=== PATIENT | female | born 1955 | race Caucasian/White ===

== ENCOUNTER → 2016-12-07 | Outpatient (CLI) | payer OTHER | LOC: MC.RAD 14:00 | DX: N63 Unspecified lump in breast (principal); D24.1 Benign neoplasm of right breast; D24.2 Benign neoplasm of left breast ==

== ENCOUNTER → 2020-02-18 | Outpatient (CLI) | payer MEDICARE, BC ==
[2020-02-18 10:04] LABS: HEMATOCRIT 45.4 % (37.0-47.0); HEMOGLOBIN 15.1 g/dl (12.5-16.0); MEAN CELL VOLUME 95 fl (80.0-100.0); MEAN CORPUSCULAR HEMOGLOBIN 32 pg (27.0-31.0); MEAN CORPUSCULAR HGB CONC 33 g/dl (33.0-37.0); MEAN PLATELET VOLUME 9.7 fl (7.4-10.4); PLATELET COUNT 277 K/mm3 (130-400); RED BLOOD COUNT 4.76 M/mm3 (4.10-5.30); REDCELL DISTRIBUTION WIDTH-CV 12.1 % (11.5-14.5)
[2020-02-18 10:34] LABS: ERYTHROCYTE SEDIMENTATION RATE 13 mm/hr (0-30)
== END ==
LOC: COL.LAB 09:21
PROVIDERS: Orthopaedic Surgery
DX: Z47.1 Aftercare following joint replacement surgery (principal); Z96.651 Presence of right artificial knee joint

== ENCOUNTER 2021-02-26 13:31 | Inpatient (IN) | payer OTHER ==
[~2021-02-26] VITALS: Ht 160.1 cm; Wt 88.9 kg
[2021-02-26 15:53] LABS: BASO # 0.1 (0.0-0.2); BASO % 0.4 % (0.0-2.0); EOS # 0.2 (0.0-0.7); EOS % 1.5 % (0-4.0); GRAN # 12.7 (1.4-6.5); GRAN % 81.5 % (42.2-75.2); HEMATOCRIT 40.3 % (37.0-47.0); HEMOGLOBIN 13.2 g/dl (12.5-16.0); LYMPH # 1.6 (1.2-3.4); LYMPH % 10.1 % (20.0-51.0); MEAN CELL VOLUME 96 fl (80.0-100.0); MEAN CORPUSCULAR HEMOGLOBIN 31 pg (27.0-31.0); MEAN CORPUSCULAR HGB CONC 33 g/dl (33.0-37.0); MEAN PLATELET VOLUME 9.7 fl (7.4-10.4); MONO # 0.9 (0.1-0.6); PLATELET COUNT 283 K/mm3 (130-400); RED BLOOD COUNT 4.21 M/mm3 (4.10-5.30); REDCELL DISTRIBUTION WIDTH-CV 12.1 % (11.5-14.5)
[2021-02-26 16:01] LABS: PROTHROMBIN TIME 11.2 SECONDS (9.7-12.8)
[2021-02-26 16:04] LABS: ALBUMIN 4.2 gm/dL (3.5-5.0); BILIRUBIN,TOTAL 0.3 mg/dL (0.0-1.0); CALCIUM 8.9 mg/dL (8.4-10.2); CREATININE, serum 0.83 (0.52-1.25); POTASSIUM 4.3 mmol/L (3.4-5.0); TOTAL PROTEIN 7.5 gm/dL (6.4-8.2)
[2021-02-26 17:32] LABS: MUCOUS Present /lpf; PH 5 (5-8); SQUAMOUS EPITHELIAL 0-2 /hpf; URINE APPEARANCE Clear; URINE BACTERIA None Seen /hpf; URINE BILIRUBIN Negative (NEGATIVE); URINE BLOOD 1+ (NEGATIVE); URINE COLOR Yellow; URINE GLUCOSE Negative (NEGATIVE); URINE KETONE Negative (NEGATIVE); URINE LEUKOCYTE ESTERASE Negative (NEGATIVE); URINE NITRATE Negative (NEGATIVE); URINE PROTEIN(semi-quant) Negative (NEGATIVE); URINE WBC 0-2 /hpf
[2021-02-26 18:13] LABS: COLLECTION METHOD CLEAN CATCH
--- NOTE | 2021-02-26 18:30 | NUR ---
PATIENT ARRIVED TO ROOM 327 VIA CART FROM ER. PATIENT SETTELED INTO ROOM. CALL LIGHT WITHIN REACH. REPORT GIVEN TO ADELSO BHATTI.
[2021-02-26 18:37] VITALS: BP 134/74; PULSE 67; TEMP 98.5
[2021-02-26] MEDS ORDERED: NAPROSYN 2250 MG/TAB PO (19:50)
[2021-02-26] MEDS ORDERED: VOLTAREN 75 DR75 MG PO (19:51)
[2021-02-26] MEDS ORDERED: NORCO 325 MG-51 TAB PO (19:51)
[2021-02-26] MEDS ORDERED: PRAVACHOL80 MG PO (19:52)
[2021-02-26] MEDS ORDERED: SYNTHROID0.112 MG/T PO (19:52)
[2021-02-26] MEDS ORDERED: COZAAR 25MG25 MG/TAB PO (19:53)
--- NOTE | 2021-02-26 19:58 | NUR ---
PT MEDICATED WITH DILAUDID 0.5MG IVP AT THIS TIME FOR PAIN 8/10 TO RIGHT LEG AND RIBS. HAS SL TO LEFT WRIST, FLUSHES WELL. HAS RODRIGUEZ TO BSD WITH YELLOW URINE. SPOUSE BROUGHT FOOD FROM HOME. TEDS AND SCD TO LEFT LEG.
[2021-02-26 20:05] VITALS: BP 145/87; PULSE 70; TEMP 98.3
--- NOTE | 2021-02-26 22:19 | NUR ---
MEDICATED WITH IV DILAUDID 0.5MG FOR PAIN 6/10 TO RIGHT LEG.
--- NOTE | 2021-02-26 22:33 | NUR ---
SPOKE WITH SIXTO FRANCISCO REGARDING ORDERED LOVENOX FOR THIS PATIENT. OKAYED TO HOLD UNTIL AFTER SURGERY, POTENTIALLY TOMORROW.
[2021-02-27] VITALS (13 sets, daily range): BP systolic 94–137; BP diastolic 52–73; PULSE 57–78; TEMP 97.4–98.4
--- NOTE | 2021-02-27 00:05 | NUR ---
Melatonin 9mg po given for sleep.
--- NOTE | 2021-02-27 01:27 | NUR ---
Pt asking for something else for sleep, Yesika CASTRO contacted, new order for Tylenol. Pt medicated at this time with Dilaudid 0.5mg IVP for pain to rt leg 05/17.
--- NOTE | 2021-02-27 02:23 | NUR ---
DILAUDID 0.5MG IVP NOW FOR CONTINUED PAIN TO RT LEG.
[2021-02-27 02:36] LABS: COLLECTION METHOD CATHETER
[2021-02-27 02:46] LABS: MUCOUS Present /lpf; PH 5 (5-8); SQUAMOUS EPITHELIAL None Seen /hpf; URINE APPEARANCE Clear; URINE BACTERIA None Seen /hpf; URINE BILIRUBIN Negative (NEGATIVE); URINE BLOOD 2+ (NEGATIVE); URINE COLOR Yellow; URINE GLUCOSE Negative (NEGATIVE); URINE KETONE Negative (NEGATIVE); URINE LEUKOCYTE ESTERASE Trace (NEGATIVE); URINE NITRATE Negative (NEGATIVE); URINE PROTEIN(semi-quant) Negative (NEGATIVE); URINE RBC >50 /hpf
--- NOTE | 2021-02-27 04:30 | NUR ---
Pt denies need for pain meds at this time. Has been NPO since midnight.
[2021-02-27 06:32] LABS: BASO # 0.1 (0.0-0.2); BASO % 0.6 % (0.0-2.0); EOS # 0.4 (0.0-0.7); EOS % 4.9 % (0-4.0); GRAN # 4.8 (1.4-6.5); GRAN % 56.1 % (42.2-75.2); HEMOGLOBIN 11.8 g/dl (12.5-16.0); LYMPH # 2.2 (1.2-3.4); LYMPH % 25.4 % (20.0-51.0); MEAN CELL VOLUME 97 fl (80.0-100.0); MEAN CORPUSCULAR HEMOGLOBIN 32 pg (27.0-31.0); MEAN CORPUSCULAR HGB CONC 33 g/dl (33.0-37.0); MEAN PLATELET VOLUME 10.3 fl (7.4-10.4); MONO # 1.1 (0.1-0.6); MONO % 12.5 % (1.7-9.3); PLATELET COUNT 247 K/mm3 (130-400); RED BLOOD COUNT 3.65 M/mm3 (4.10-5.30); REDCELL DISTRIBUTION WIDTH-CV 12.4 % (11.5-14.5)
[2021-02-27 06:40] LABS: HEMATOCRIT 35.4 % (37.0-47.0)
--- NOTE | 2021-02-27 09:21 | NUR ---
PATIENT REPORTING PAIN IN HER KNEE PRN IV DILAUDID GIVEN. SEE MORNING SHIFT ASSESSMENT. CALL LIGHT IN REACH. NO OTHER NEEDS AT THIS TIME.
--- NOTE | 2021-02-27 11:11 | NUR ---
PATIENT CONSENT FORM SIGNED AND PLACED ON PATIENT CHART. LR TO GRAVITY FLOW TUBING. MARYAM CABAN PRESENT IN PATIENT ROOM.
--- NOTE | 2021-02-27 11:20 | NUR ---
PATIENT TAKEN TO [facility]-OP VIA BED BY ADELSO SABA. WILL WAIT FOR PATIENT ARRIVAL BACK TO ROOM 327 POST-OP.
--- NOTE | 2021-02-27 12:20 | NUR ---
SW met with patient to complete intake. Patient states that she is lives in [place] with her spouse Dre [phone], . Patient states that she does not utilize any DME and is independent with ADL's. Patient states that her PCP is Dr. Reardon, pharmacy is [facility], and is able to afford her medications at this time. Patient states that her has been appointed as her DPOA-HC and that she will speak to him about bringing up the documents. Patient states that she plans to go back to her home [place] and has no concerns or questions in that regard. SW will continue to follow.
--- NOTE | 2021-02-27 14:35 | NUR ---
PATIENT ARRIVED TO ROOM 327 VIA BED FROM PACU. PATIENT IS DROWSY BUT EASILY AROUSABLE. POST-OP VSS. PRESENT AT THE BEDSIDE. PATIENT TOLERATING SIPS AND CHIPS AT THIS TIME. WILL CONTINUE TO MONITOR.
--- NOTE | 2021-02-27 16:29 | NUR ---
PATIENT GIVEN PRN PO TYLENOL FOR HEADACHE. PATIENT IS NOW ABLE TO WIGGLE FEET AND TOES. CAP REFILL <3 SECONDS. CMS INTACT. PATIENT TOLERATING CLEAR LIQUIDS, DIET ADVANCED TO GENERAL.
--- NOTE | 2021-02-27 18:20 | NUR ---
PATIENT POST-OP VSS AND COMPLETE. PATIENT GIVEN PRN IV DILAUDID FOR BURNING PAIN IN HER RIGHT UPPER THIGH. PATIENT TOLERATING A GENERAL DIET. IMMOBILIZER TO RLE WHICH IS ELEVATED ON PILLOWS. RODRIGUEZ CATHETER TO DEPENDENT DRAINAGE. CALL LIGHT WITHIN REACH. PATIENT DENIES ANY ADDITIONAL NEEDS AT THIS TIME.
--- NOTE | 2021-02-27 19:02 | NUR ---
PATIENT REPORT GIVEN TO ADELSO BHATTI.
--- NOTE | 2021-02-27 20:15 | NUR ---
Spoke with Gonzalez FRANCISCO regarding need for oral pain meds. New order given.
--- NOTE | 2021-02-27 20:21 | NUR ---
Medicated with Percocet 2 tabs for pain 8/ to right leg. Previously reported burning in thigh, this has resolved. Has SL to left forearm, flushes well. Has cheema to BSD with yellow urine. Right wrist with reddened area, wm to touch. Rt leg with immobilizer on, good CSM of rt foot/toes.
--- NOTE | 2021-02-27 22:49 | NUR ---
Dilaudid 0.5mg IVP and Naprosyn 250mg po for rt leg pain 03/17. Pt repositioned in bed.
--- NOTE | 2021-02-28 02:24 | NUR ---
Medicated with Percocet 2 tabs po for rt leg pain.
[2021-02-28 04:00] VITALS: BP 145/72; PULSE 72; TEMP 98.1
--- NOTE | 2021-02-28 06:05 | NUR ---
PT MEDICATED WITH SCHEDULED AM MED INCLUDING PERCOCET 2 TABS FOR RT LEG PAIN.
[2021-02-28 06:28] LABS: BASO % 0.5 % (0.0-2.0); EOS # 0.5 (0.0-0.7); EOS % 5.2 % (0-4.0); GRAN # 5.7 (1.4-6.5); GRAN % 65.2 % (42.2-75.2); LYMPH # 1.5 (1.2-3.4); LYMPH % 16.7 % (20.0-51.0); MEAN CELL VOLUME 95 fl (80.0-100.0); MEAN CORPUSCULAR HEMOGLOBIN 31 pg (27.0-31.0); MEAN CORPUSCULAR HGB CONC 33 g/dl (33.0-37.0); MEAN PLATELET VOLUME 10.5 fl (7.4-10.4); MONO # 1.1 (0.1-0.6); MONO % 12.1 % (1.7-9.3); PLATELET COUNT 203 K/mm3 (130-400)
[2021-02-28 06:39] LABS: HEMATOCRIT 30.5 % (37.0-47.0)
[2021-02-28 07:17] VITALS: BP 126/64; PULSE 72; TEMP 97.9
--- NOTE | 2021-02-28 10:21 | NUR ---
Initial visit; Patient friendly though declined spiritual care. Sand Temperer wished Bailey well.
[2021-02-28 11:26] VITALS: BP 110/61; PULSE 67; TEMP 98.1
--- NOTE | 2021-02-28 14:04 | NUR ---
Fire Apparatus Engineer attended clinical rounds with the team and patient advised she plans to return home upon discharge. SW discussed Home Health services and provided list of HH agencies that serve [place]. Patient selected [facility] and advised that everything should be going through Workmans Comp as she was injured at work. SW contacted Ashley at [facility] and faxed referral. Ashley advised that unfortunately, will not cover HH services and that if WC has been filed, Medicare will also not cover HH services. SW followed up with patient to provide update. SW discussed OT recommendation for HH vs IPR. Patient states she does not want to go anywhere for rehab. Patient would like to have outpatient therapy set up at [facility]. SW contacted Noelle at [facility] who advised they do outpatient therapy and have actually had patient for services before. SELMA will contact them upon discharge to schedule appointments. Patient also reports to SELMA that she has made arrangements to borrow a walker and wheelchair from her sister. SELMA will continue to follow. Discharge Plan: Home with outpatient therapy.
[2021-02-28 16:00] VITALS: BP 116/55; PULSE 87; TEMP 98.4
--- NOTE | 2021-02-28 18:24 | NUR ---
Patient has been doing well today. She is doing well with transfers. Just a little slow with ambulation. Needs several reminders with walker safety and TTWB. Dressing to right leg is C/D/I. Brace on. She has been keeping it elevated. No compliants of nausea today. She has been taking the percocet every 4-6 hours as needed for pain. No other changes at this time. Call light within reach.
[2021-02-28 20:58] VITALS: BP 128/65; PULSE 75; TEMP 99.8
[2021-02-28 23:44] VITALS: BP 133/81; PULSE 80; TEMP 98.4
[2021-03-01 03:03] VITALS: BP 143/75; PULSE 77; TEMP 98.1
--- NOTE | 2021-03-01 05:58 | NUR ---
Patient did well throughout the shift. Percocet as needed for pain. Ambulating to the bathroom with walker and standby assist. The bruise on patient's eyebrow started to bleed so gauze and a bandaid was applied. No additional needs.
[2021-03-01 07:37] VITALS: BP 113/58; PULSE 70; TEMP 97.9
--- NOTE | 2021-03-01 08:00 | NUR ---
PATIENT IS A&O. VSS. C/O PAIN RATED AT 4-5 ON PAIN SCALE IN RLE. GAVE PRN PERCOCET, TWO TABS WITH AM MEDS. RIGHT HIP DRESSING IS CD&I WITH AQUACEL AND ICE PACK INPLACE. TEDS TO BLE. SCD'S CURRENTLY OFF. POSITIVE PEDAL PULSES TO BLE. TECHNOL BRACE INPLACE. TTWB. PT/OT CONSULTED. NOTED LARGE RIGHT EYE/FACE BRUISE FROM FALL. HEAD TO TOE ASSESSMENT COMPLETE. BREAKFAST TRAY ORDERED. PATIENT HOPING TO DISCHARGE HOME LATER TODAY. NO OTHER NEEDS. CALL LIGHT IN REACH.
[2021-03-01] MEDS ORDERED: ASPIRIN 32325 MG/TAB PO (08:57)
[2021-03-01] MEDS ORDERED: PERCOCET 325 MG1 TA2 PO (08:58)
[2021-03-01] MEDS ORDERED: TYLENOL 325MG325 MG PO (08:58)
--- NOTE | 2021-03-01 11:25 | NUR ---
PATIENT DISCHARGING HOME VIA WC TO PERSONAL VEHICLE WHERE SISTER IS WAITING. GAVE DISCHARGE INSTRUCTIONS, E-SCRIPTS SENT, AND DISCUSED F/U APT. ANSWERED QUESTIONS/CONCERNS. DC'D LEFT FORARM IV, COVERED SITE WITH GAUZE & COBAN. PERSONAL BELONGINGS PACKED, PATIENT DRESSED, AND DISCHARGED.
--- NOTE | 2021-03-01 12:21 | NUR ---
Optoelectronic Technician attended clinical rounds with the team and patient states she is ready to get home today. Patient to follow up with Ortho prior to starting outpatient therapy. Patient reports she knows how to get in contact with [facility] once Ortho follows up and orders therapy. Patient confirmed that she has a wheelchair and walker at home. SW contacted Sol at [facility] to provide update. Sol states she has patient's contact information and will follow up with patient after her Ortho follow up on 03/15. Discharge Plan: Home with outpatient therapy follow up.
== END 2021-03-01 11:25 | disposition home or self-care (01) | DRG 482 ==
LOC: COL.ER 13:31 → SURG 15:47
PROVIDERS: Nurse Practitioner Family; Orthopaedic Surgery Sports Medicine; ADMIT Internal Medicine
PROC: 0QS804Z Reposition Right Femoral Shaft with Internal Fixation Device, Open Approach (ICD-10-PCS; principal; 2021-02-27 12:00)
DX: S72.401A Unspecified fracture of lower end of right femur, initial encounter for closed fracture (principal); E03.9 Hypothyroidism, unspecified; E78.5 Hyperlipidemia, unspecified; D72.829 Elevated white blood cell count, unspecified; I10 Essential (primary) hypertension; M25.531 Pain in right wrist; Z96.651 Presence of right artificial knee joint; M19.90 Unspecified osteoarthritis, unspecified site; E66.9 Obesity, unspecified; F17.210 Nicotine dependence, cigarettes, uncomplicated; E78.00 Pure hypercholesterolemia, unspecified; Z90.710 Acquired absence of both cervix and uterus; Z90.49 Acquired absence of other specified parts of digestive tract
CPT/HCPCS: 99222-AI; 99231-AI; 99232-AI; 99239; A9284; C1713; C1776; J0690; J1170; J1650; J2250; J2405; J2704; J3010; J7120; L1830

== ENCOUNTER 2022-03-24 07:39 | Day surgery (SDC) | payer MEDICARE, BC ==
[~2022-03-24] VITALS: Ht 160 cm; Wt 79.7 kg
[2022-03-24] VITALS (11 sets, daily range): BP systolic 104–126; BP diastolic 56–90; PULSE 55–66; TEMP 98.2
[~2022-03-24 07:39] MED LIST: ASPIRIN 32325 MG/TAB PO; COZAAR 25MG25 MG/TAB PO; NAPROSYN 2250 MG/TAB PO; NORCO 325 MG-51 TAB PO; PERCOCET 325 MG1 TA2 PO; PRAVACHOL80 MG PO; SYNTHROID0.112 MG/T PO; TYLENOL 325MG325 MG PO; VOLTAREN 75 DR75 MG PO
[2022-03-24 08:09] LABS: HEMATOCRIT 46.1 % (37.0-47.0); HEMOGLOBIN 15.9 g/dl (12.5-16.0); MEAN CELL VOLUME 94 fl (80.0-100.0); MEAN CORPUSCULAR HEMOGLOBIN 32 pg (27-31); MEAN CORPUSCULAR HGB CONC 35 g/dl (33.0-37.0); PLATELET COUNT 279 K/mm3 (130-400); REDCELL DISTRIBUTION WIDTH-CV 11.8 % (11.5-14.5)
[2022-03-24 08:27] LABS: PROTHROMBIN TIME 10.9 SECONDS (9.7-12.8)
[2022-03-24 08:29] LABS: PARTIAL THROMBOPLASTIN TIME 32.6 SECONDS (26.0-37.0)
[2022-03-24 08:40] LABS: CALCIUM 9.8 mg/dL (8.4-10.2); CREATININE, serum 0.73 mg/dL (0.57-1.11); POTASSIUM 4.3 mmol/L (3.5-4.5)
--- NOTE | 2022-03-24 09:53 | NUR ---
See merge for all medication, assessment, intervention, and vital sign times. Assessment performed prior to intervention, documented after
[2022-03-24] MEDS ORDERED: LIPITOR 40MG TA40 MG PO (10:30)
--- NOTE | 2022-03-24 14:30 | NUR ---
Discharge instructions given to pt, pt verbalizes understanding. Pt escorted via wheelchair,
== END 2022-03-24 14:55 | disposition home or self-care (01) ==
LOC: COL.CAR 07:39
PROVIDERS: Internal Medicine Cardiovascular Disease
DX: R07.89 Other chest pain (principal); I25.10 Atherosclerotic heart disease of native coronary artery without angina pectoris; R42 Dizziness and giddiness; I10 Essential (primary) hypertension; E78.2 Mixed hyperlipidemia; R55 Syncope and collapse; F17.210 Nicotine dependence, cigarettes, uncomplicated; Z79.899 Other long term (current) drug therapy; Z79.82 Long term (current) use of aspirin
CPT/HCPCS: J1644; J2250; J3010